=== PATIENT | male | born 1960 | race Caucasian/White ===

== ENCOUNTER 2023-03-29 08:03 | Day surgery (SDC) | payer OTHER ==
[2023-03-29 09:14] VITALS: O2SAT 97; BMI 25.8
--- NOTE | 2023-03-29 10:02 | RAD REPORT ---
EXAM DESCRIPTION: US - Paracentesis Proc Guidance - 03/29/2023 9:37 am CLINICAL HISTORY: ASCITES Ascites COMPARISON: No comparisons FINDINGS: Informed consent was obtained and time-out was performed. Patient's abdomen was prepped and draped in the usual sterile fashion. 1% lidocaine was used for loca l anesthetic purposes. A small skin incision was made. A paracentesis catheter was guided into the peroneal cavity under son ographic guidance. A small amount of fluid was sent for requested lab studies. A large volume paracentesis was performed . 1.4 liters of fluid was aspirated. The patient tolerated the procedure well. IMPRESSION: Successful ultrasound-guided paracentesis.
[2023-03-29 10:51] VITALS: BP 127/59; TEMP 98.3
== END 2023-03-29 10:45 | disposition home or self-care (01) ==
LOC: DS 08:03
PROVIDERS: ATTEND Internal Medicine Gastroenterology
DX: R18.8 Other ascites (principal); I85.01 Esophageal varices with bleeding; R16.1 Splenomegaly, not elsewhere classified; K74.60 Unspecified cirrhosis of liver
CPT/HCPCS: 49083